=== PATIENT | male | born 1935 | race Caucasian/White ===

== ENCOUNTER 2018-12-16 08:50 | Emergency (ER) | payer MEDICARE, OTHER ==
[~2018-12-16] VITALS: Ht 177.8 cm; Wt 83.9 kg
[~2018-12-16 08:50] MED LIST: ASPIR 8181 MG PO; ATORVASTATIN CA40 MG PO; BENTYL20 MG PO; BOWEL PREP; LEVOXYL125 MCG PO; LISINOPRIL2.5 MG PO; OCUVITE TABLET1 EAC1 PO; TOPROL XL25 MG PO
[2018-12-16] MEDS ORDERED: AREDS (09:08)
[2018-12-16] MEDS ORDERED: NORVASC5 MG PO (09:08)
[2018-12-16] MEDS ORDERED: BYSTOLIC 5 MG5 M1 PO (09:09)
[2018-12-16] MEDS ORDERED: CELEXA10 MG PO (09:09)
[2018-12-16 10:12] LABS: HEMATOCRIT 43.9 % (42.0-52.0); HEMOGLOBIN 14.9 gm/dL (14.0-18.0); MCH 31.4 pg (26.0-34.0); MCV 92.2 fL (80.0-100.0); MPV 8.8 fl. (7.2-11.1); RBC 4.76 mil/uL (4.50-6.00); RDW-CV 13.9 % (10.5-14.5); WBC 9.2 thou/uL (4.0-11.0)
[2018-12-16 10:25] LABS: ANION GAP 5 mmol/L (7-16); BUN 16 mg/dL (7-18); CALCIUM 8.4 mg/dL (8.5-10.1); CHLORIDE 106 mmol/L (98-107); CO2 33 mmol/L (21-32); GLUCOSE 158 mg/dL (70-99); POTASSIUM 4.4 mmol/L (3.5-5.1); SODIUM 144 mmol/L (136-145); TROPONIN-I LEVEL <0.06 ng/mL (<0.06)
[2018-12-16 10:28] LABS: ALBUMIN 3.3 g/dL (3.4-5.0); ALKALINE PHOSPHATASE 116 U/L (46-116); SGOT 24 U/L (15-37); SGPT 28 U/L (30-65); TOTAL BILIRUBIN 1.8 mg/dL (<0.1-1.0); TOTAL PROTEIN 6.3 g/dL (6.4-8.2)
[2018-12-16 11:46] LABS: APTT 26.5 Seconds (25.0-31.3); INR 1.1
[2018-12-16 12:50] VITALS: BP 154/68
--- NOTE | 2018-12-17 07:20 | EKG ---
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 12/17/18 0720 3 Kalen Bazzi MD, FACC /EPI
== END 2018-12-16 12:56 | disposition short-term general hospital (02) ==
LOC: M.ERS 08:50
PROVIDERS: Emergency Medicine Emergency Medical Services
DX: S06.5X0A Traumatic subdural hemorrhage without loss of consciousness, initial encounter (principal); S01.81XA Laceration without foreign body of other part of head, initial encounter; I10 Essential (primary) hypertension; E78.5 Hyperlipidemia, unspecified; Z88.0 Allergy status to penicillin; Z90.49 Acquired absence of other specified parts of digestive tract; Z85.46 Personal history of malignant neoplasm of prostate; W01.198A Fall on same level from slipping, tripping and stumbling with subsequent striking against other object, initial encounter; Y92.89 Other specified places as the place of occurrence of the external cause; Y93.89 Activity, other specified; Y99.8 Other external cause status